=== PATIENT | male | born 1960 | race Caucasian/White ===

== ENCOUNTER 2023-12-05 12:23 | Emergency (ER) | payer SELFPAY ==
--- NOTE | ~2023-12-05 | XR_ITS ---
EXAMINATION: XR wrist LT 2V DATE: 12/05/2023 13:00 INDICATION: Left wrist deformity post fall TECHNIQUE: Posteroanterior and lateral views of the left wrist were obtained. COMPARISON: none FINDINGS: Intra-articular fracture distal left radius. There is 5 mm posterior displacement along the volar mar gin of the fracture. There is approximately 2 mm lucent fracture gap along the articular cortex on th e lateral projection. Posterior angulation resulting in 50 degrees dorsal tilt of the distal articula r surface. Small corticated ossicle at the dorsal rim of the distal radius which could represent eith er a degenerative loose osteochondral body or sequela of a more chronic injury. No other acute fractu res identified. Polyarticular osteoarthritis, moderate severity at the triscaphe and first carpal met acarpal joints and mild at the distal radioulnar, wrist and a few of the metacarpophalangeal and inte rphalangeal joints. Mild soft tissue swelling about the distal forearm. IMPRESSION: 1. Posterior displacement and angulation of a comminuted intra-articular fracture of the distal left radius. Reviewed, dictated and finalized at location A. [employer] IMPRESSION: 1. Posterior displacement and angulation of a comminuted intra-articular fractu re of the distal left radius.
[2023-12-05 12:26] VITALS: BP 192/88; PULSE 93; RESP 20; TEMP 36.4; O2SAT 97
[2023-12-05] MEDS: HYDROmorphone HCL INJ (*CRX) 1 MG/ML SYR 0.5 MG IV PUSH (13:57)
--- NOTE | 2023-12-05 14:16 | ED.GENADULT ---
HPI - General Adult General Chief complaint: Fall Stated complaint: L wrist injury Time Seen by Provider: 12/05/23 13:44 History of Present Illness HPI narrative: 63-year-old male presenting to the emergency department for evaluation of left arm pain. Patient had a ground level fall this morning injuring his left wrist. Patient denies striking his head denies any loss of consciousness. Patient denies any other pain or injury. Related Data Allergies Allergy/AdvReac Type Severity Reaction Status Date / Time No Known Allergies Allergy Verified 12/05/23 12:44 Review of Systems Review of Systems: All systems reviewed & are unremarkable except as noted in HPI and below [facility] Social History Social History Smoking status: Never smoker Alcohol intake: current Exam Narrative: APPEARANCE: Uncomfortable appearing HEAD: normocephalic, atraumatic. EYES: PERRLA/EOMI, conjunctivae clear. NOSE: Normal no drainage EARS:TMS clear with good light reflex. THROAT: Pharynx clear, no exudate. NECK: Supple. No adenopathy, no masses. RESPIRATORY: Airway patent, respirations nonlabored. Clear to auscultation bilaterally, no rales, rhonchi, wheezing. CARDIOVASCULAR: Regular rate and rhythm without murmurs rubs or gallops. ABDOMINAL: Soft, nontender, nondistended, normal bowel sounds MUSCULOSKELETAL: Deformity and swelling of left wrist, neurovascularly intact with strong cap refill NEURO: Alert. Cranial nerves II through XII intact. Grossly intact SKIN: Warm, dry. Normal Color Course Course Emergency Course: A 63-year-old male presents emergency department for evaluation of a left wrist injury. X-ray showed posterior displacement and angulation of a comminuted intra-articular fracture of the distal left radius. Patient was treated with IV Dilaudid for pain control and a hematoma block was performed. Hematoma block was performed with adequate pain control. Patient's wrist is extensively swollen and unable to obtain any reduction. I do not believe that sedation would help with reduction. Patient is neurovascularly intact and has strong cap refill. Patient will be splinted in place and have close follow-up with orthopedics. Patient and family were updated on reasons to return to the emergency department. Vital Signs Vital signs: Vital Signs Temperature 97.5 F L 12/05/23 12:26 Pulse Rate 93 12/05/23 12:26 Respiratory Rate 20 12/05/23 12:26 Blood Pressure 192/88 H 12/05/23 12:26 Pulse Oximetry 97 12/05/23 12:26 Oxygen Delivery Room Air 12/05/23 12:26 Temperature 97.5 F L 12/05/23 12:26 Pulse Rate 93 12/05/23 12:26 Respiratory Rate 20 12/05/23 12:26 Blood Pressure 192/88 H 12/05/23 12:26 Pulse Oximetry 97 12/05/23 12:26 Oxygen Delivery Room Air 12/05/23 12:26 Procedures Orthopedic Joint Reduction Joint #1: Time Out Performed: Yes Side: left Joint Reduction Location: wrist Analgesia: hematoma block Pre-Procedure Neuro Vascular Exam: normal Local Anesthesia: lidocaine 1% Amount of anesthesic used (mL): 5 Technique used: traction/counter-traction Post-reduction neuro exam: intact and no change Post-reduction vascular: intact and no change Post Reduction X-Ray Obtained: No Splint Applied: Yes Patient Tolerated Procedure: well and no complications Additional Comments: Due to the stents have swelling of the patient's wrist there was minimal movement of the angulation the wrist. Medical Decision Making Differential Diagnosis Differential Diagnosis: Wrist fracture, wrist dislocation Vital Signs Vital Signs: Vital Signs Temperature 97.5 F L 12/05/23 12:26 Pulse Rate 93 12/05/23 12:26 Respiratory Rate 12/05/23 12:26 Blood Pressure 192/88 H 12/05/23 12:26 Pulse Oximetry 97 12/05/23 12:26 Oxygen Delivery Room Air 12/05/23 12:26 Temperature 97.5 F L 12/05/23 12:26
[2023-12-05] MEDS: KETOROLAC 30 MG/ML VIAL (*BKC) IV PUSH (15:11)
== END 2023-12-05 15:18 | disposition home or self-care (01) ==
PROVIDERS: Emergency Provider Emergency Medicine
DX: S52.572A Other intraarticular fracture of lower end of left radius, initial encounter for closed fracture (principal); W00.0XXA Fall on same level due to ice and snow, initial encounter
CPT/HCPCS: 25605; 73100; 96374; 96375; 99285; A4565; J1170; J1885